=== PATIENT | male | born 1985 | race Two or more races ===

== ENCOUNTER 2016-07-05 07:42 | Emergency (ER) | payer OTHER ==
[2016-07-05] MEDS ORDERED: LIDOCAINE 5% 1 EA PATCH TD ONE (08:11)
[2016-07-05] MEDS ORDERED: CYCLOBENZAPRINE 10 MG TAB PO ONE (08:11)
[2016-07-05] MEDS ORDERED: ACETAMINOPHEN 500 MG TAB PO ONE (08:11)
[2016-07-05] MEDS ORDERED: DEXAMETHASONE 4 MG/ML VIAL IVP ONE (08:11)
[2016-07-05] MEDS ORDERED: DEXAMETHASONE 4 MG TAB PO ONE (08:12)
--- NOTE | 2016-07-05 08:18 | EDPHY ---
H & P Time Seen by Provider: 07/05/16 07:48 HPI/ROS: CHIEF COMPLAINT: Low back pain HISTORY OF PRESENT ILLNESS: 31-year-old male presents reporting that he developed low back pain while at work several days ago. No specific inciting factor or event, no direct trauma, however, after helping move boxes all day he noticed his lower back was aching and bothering him. Pain has been steady and slightly worse. This morning he woke at 4 o'clock in the morning feeling like he had "locked up" his back. Patient denies any radiation of the pain except into his buttocks. No numbness or tingling in his legs. No electric shooting pains into his legs. No weakness. No fevers or chills, nausea vomiting, urinary complaints, rash, erythema, or other concerns. No fever, chills, chest pain, shortness of breath, palpitations, vomiting, diarrhea, urinary complaints, headache, lightheadedness. REVIEW OF SYSTEMS: Aside from elements discussed in the HPI, a comprehensive 10-point review of systems was reviewed and is negative. PAST MEDICAL HISTORY: Patient denies. No known allergies. SOCIAL HISTORY: Incident occurred while at work. General appearance: Uncomfortable appearing. Moving slowly about the bed. Worse pain with movement. Lungs are clear to auscultation. Heart is regular. Focused examination of back: No trauma is noted. No erythema. No midline tenderness to palpation. Paraspinous muscle spasm is present along the lumbar spine. Patient indicates the pain is diffuse across the lumbar spine area, bilaterally but slightly worse on the right. Neurological exam: Straight leg raise test is negative bilaterally. Hip flexion, knee extension, knee flexion, dorsiflexion and plantar flexion are 5/ 5 bilaterally. EHL 5 over 5. Sensation is intact to light touch throughout. 2 + knee and ankle jerk bilaterally. Vascular exam: Dorsalis pedis and posterior tibial pulses are intact. Brisk capillary refill. Smoking Status: Never smoked Constitutional: Initial Vital Signs Temperature (C) 36.5 C 07/05/16 07:53 Heart Rate 74 07/05/16 07:53 Respiratory Rate 16 07/05/16 07:53 Blood Pressure 115/65 07/05/16 07:53 O2 Sat (%) 95 07/05/16 07:53 O2 Delivery Mode Room Air Allergies/Adverse Reactions: No Known Allergies Allergy (Unverified 07/05/16 07:55) Home Medications: Medication Instructions Recorded Cyclobenzaprine [Flexeril 10 MG 10 mg PO TID PRN #20 tab 07/05/16 (RX)] Methylphenidate ER 07/05/16 Sertraline HCl 07/05/16 methylPREDNISolone [Medrol Dose 4 mg PO DAILY #1 each 07/05/16 Darrell] Medical Decision Making ED Course/Re-evaluation: 31-year-old male presenting with low back pain, bilateral, diffuse across the lumbar spine area. Some radiation into the buttocks bilaterally. Slightly worse on the right than on the left. No radicular symptoms. Based on the history and physical I do not suspect acute occult trauma, cauda equina, diskitis, epidural abscess, transverse myelitis, or other life-threatening etiologies. Patient was treated with Tylenol, he had taken ibuprofen earlier, as well as Decadron 8 mg and lidocaine patch. Please see the discharge instructions. Differential Diagnosis: After history was obtained and physical exam performed, the differential for back pain was considered including but not limited to muscular pain, herniated disc, spine fracture, intra-abdominal causes, and urinary tract infection. Departure - Departure Disposition: Home, Routine, Self-Care Clinical Impression: Low back pain Qualifiers: Chronicity: acute Back pain laterality: bilateral Sciatica presence: without sciatica Qualified Code(s): M54.5 - Low back pain Condition: Good Instructions: Low Back Strain (ED), Acute Low Back Pain (ED) Additional Instructions: Treatment for your back pain depends on anti inflammation, muscle relaxants, and pain control. 1. For anti inflammation: I recommend Ibuprofen (Motrin, Advil) or Naproxen Sodium (Aleve) for pain and anti-inflammatory effects. You may take either one, but do not take both. Your dose is: Ibuprofen 600 mg every 6-8 hours with food. OR Naproxen Sodium (Aleve) 220 mg every 12 hours. You have also been given a Medrol Dosepak to use for anti-inflammatory effects. Please begin taking this tomorrow. 2. Please use the Flexeril as directed for muscle relaxation. This may make you sleepy. 3. For pain control, I suggest topical lidocaine patches. 4% patches are available [id number]. Please follow up with workman's comp if you're not improving as expected over the weekend. Return to the emergency department or seek care urgently if you developed worsening back pain, numbness or tingling in your legs, weakness, or other concerns. Referrals: Azeem Martinez MD [Primary Care Provider] - As per Instructions Stand Alone Forms: Work Excuse Prescriptions: Cyclobenzaprine [Flexeril 10 MG (RX)] 10 mg PO TID PRN #20 tab PRN Reason: Muscle Spasms methylPREDNISolone [Medrol Dose Darrell] 4 mg PO DAILY #1 each
[2016-07-05 08:41] VITALS: BP 112/85; PULSE 78; RESP 18; TEMP 98.4; O2SAT 96
[2016-07-05] MEDS ORDERED: PATCH REMOVAL 1 EA PATCH TD SCH (21:00)
== END 2016-07-05 08:37 | disposition home or self-care (01) ==
LOC: CED 07:42
DX: M54.5 Low back pain (principal)
CPT/HCPCS: 96374